=== PATIENT | female | born 1980 | race Caucasian/White ===

== ENCOUNTER 2016-11-23 13:44 | Inpatient (IN) | payer OTHER, MEDICAID ==
[~2016-11-23] VITALS: Ht 157.5 cm; Wt 55.0 kg
[2016-11-23 13:59] VITALS: BP 106/73; PULSE 84; RESP 16; O2SAT 100
--- NOTE | 2016-11-23 16:51 | ED.REPORT ---
HPI-Psychiatric Illness Date of Service Nov 23, 2016 ED Provider: Michelle Rowland History of Present Illness: feeling suicidal for 5 months. primary care duyen kirkpatrick is primary care in [place]. Nursing Notes Stated Complaint: DEPRESSION/SUICIDAL Chief Complaint: Psychiatric Complaint Nursing Notes Reviewed: Yes Allergies: Coded Allergies: No Known Allergies (Unverified , 11/23/16) General Time Seen by MD: 16:50 Chief Complaint Depressed, Suicidal ideation Hx Obtained From: Patient Onset Occurred: More than a week ago... (5 months) Symptom Duration: Since onset Risk-Psychiatric Illness Risk Notes: 2008 stopped drinking for 4 years, no hx of seizures. and stopped last year for 6 months Suicide Risk Stratification Suicide Risk Factors - Adult: : Alcohol use (daily 1/2 a fith to a fifth a day last drink was 11/18/16): Substance abuseNo: Access to firearms, Close associate suicide, Family Hx of Suicide RF Statements: Risk factors reviewed Past Medical History Past Medical History alcoholism Denies: Asthma, Diabetes mellitus Past Surgical History cyst 2006 Reports: Inguinal hernia repair (2014) Smoking History Former Smoker (quit a few years ago) Social History drinks vodka Alcohol Use: >5 per day Drug Use: Denies drug use Occupation lives with brother work in [employer] at [employer] Ambulatory Status Independent Review of Systems Basic Review of Systems Eyes: Vision NL, No discharge Allergy / Immune: No allergy Physical Exam Initial Vital Signs Vital Signs (First) Date Time Temp Pulse Resp B/P Pulse Ox O2 Delivery O2 Flow Rate FiO2 11/23/16 13:59 36.4 84 16 106/73 100 Room Air Initial VS: Reviewed, Vital signs normal Head / Eyes: Atraumatic, Normocephalic, PERRL ENT: Mucous membranes moist, Conjunctiva normal, No scleral icterus Neck: Supple, Non-tender, Full range of motion Respiratory: Breath sounds normal, Clear to auscultation, No respiratory distress Cardiovascular: Regular rate & rhythm, Heart sounds normal, Intact distal pulses Abdomen / GI: Soft, Non-tender, No guarding, No rebound, No distention Back: No CVA tenderness Lymphatic: No lymphadenopathy Extremities: Vascular intact, Neuro intact, No swelling, No tenderness Skin: Warm, Dry, No cyanosis General/Constitutional: Awake, Alert, No acute distress, Well appearing, Well developed, Well hydrated Neurologic: Oriented X3, Speech NL, No motor deficits, No sensory deficits Abnormal Mood/Affect: Positive: Flat affect Head / Eyes: Atraumatic, Normocephalic, PERRL Respiratory / Chest: Atraumatic, Breath sounds NL, Breath sounds = bilat, No respiratory distress Cardiovascular: Heart rate NL, Regular rhythm, Heart sounds NL Interpretation & Diagnostics Lab Results Interpretation Result Diagram: 11/23/16 1642 11/23/16 1642 Test 11/23/16 15:58 11/23/16 16:42 Hold Urine Received (Received) White Blood Count 5.7th/mm3 (3.8-10.1) Red Blood Count 4.56mil/mm3 (3.90-5.20) Hemoglobin 13.3g/dL (12.0-15.6) Hematocrit 40.6% (35.0-46.0) Mean Corpuscular Volume 89.0fL (81-100) Mean Corpuscular Hemoglobin 29.2pg (27.0-35.0) Mean Corpuscular Hemoglobin Concent 32.8% (32.0-37.0) Red Cell Distribution Width 14.6% (12.3-15.4) Platelet Count 281bil/L (150-400) Neutrophils (%) (Auto) 66.4% (40-74) Lymphocytes (%) (Auto) 25.4% (14-46) Monocytes (%) (Auto) 5.9% (4-12) Eosinophils (%) (Auto) 1.6% (0-5) Basophils (%) (Auto) 0.7% (0-3) Sodium Level 138mEq/L (134-144) Potassium Level 3.9mEq/L (3.5-5.2) Chloride Level 99mEq/L (97-108) Carbon Dioxide Level 23mmol/L (18-29) Blood Urea Nitrogen 10mg/dL (6-20) Creatinine 0.57mg/dL (0.57-1.00) Estimat Glomerular Filtration Rate 173mL/min (>59) Glucose Level 94mg/dL (60-99) Calcium Level 9.0mg/dL (8.5-10.1) Total Bilirubin 0.5mg/dL (0.0-1.2) Aspartate Amino Transf (AST/SGOT) 53U/L (0-50) Alanine Aminotransferase (ALT/SGPT) 41U/L (0-32) Alkaline Phosphatase 45U/L (25-150) Total Protein 7.7g/dL (6.4-8.4) Albumin 4.6g/dL (3.4-5.0) Thyroid Stimulating Hormone (TSH) 1.620uIU/mL (0.450-4.500) Hold Escamilla Top Tube Received (Received) Re-Eval/Medical Decision Med Decision/Clinical Course 35 year old present for mental health evualation. Patient reports taking keflex for a bladder infection. EVualated by AUTOMOTIVE UPHOLSTERER, recommends addmision, she voluntary accepts. Discharge & Departure Impression: Primary Impression: Depression Major depression episode severity: moderate Disposition: ADMITTED TO HOSPITAL Referrals: Duyen Rodriguez DO (PCP) EDSupervising Provider for APC: Mason Wayne MD copies to: Duyen Rodriguez Sue ARNP Nov 23, 2016 16:51
[2016-11-23 16:55] LABS: BASOPHILS % (AUTO) 0.7 % (0-3); EOSINOPHILS % (AUTO) 1.6 % (0-5); MONOCYTES % (AUTO) 5.9 % (4-12); Mean Corpuscular Hemoglobin 29.2 pg (27.0-35.0); NEUTROPHILS % (AUTO) 66.4 % (40-74); Platelet Count 281 bil/L (150-400)
--- NOTE | 2016-11-23 20:40 | NUR ---
Nurses Admission Note 35 year old voluntary female certified through [facility] X 5 days.a Patient admitted with increasing depression,anxiety and suicidal ideations. Patient just completed an alcohol detox X 72 hours at [facility] after which she was transferred to [facility] on 11/20 through today when she arrived in the ER. Patient had been sober X 6 months prior to her relapse. Patient presented alert,oriented and polite. She described feeling depressed for most of her adult life with periods of worsening depression and anxiety. Patient stated she has had multiple trials of antidepressants without relief. She reported that her father suffered from Bipolar Disorder. Patient denied any periods of high energy,lack of sleep. Patients' anxiety has been troublesome in maintaining a job as she reported being easily overwhelmed and stressed. Patient denied previous psychiatric hospitalizations,therapy or counseling. She admitted to one episode of self harm by attempting to with excessive alcohol.Will maintain q 15min.checks for safety and support. Patient denied medical problems or allergy. Addendum: 11/23/16 at 2208 by FARIDEH AYALA RN Nurses Addendum Patient has been prescribed an antibiotic for a UTI.Cephalexin 500mg Q 6 hours began on 11/19/16.Patient has 6 capsules left in her supply. Medications sent to pharmacy.
[2016-11-23] MEDS ORDERED: Benzocaine-Menthol Lozenge 2/Pkg PO PRN (21:15)
[2016-11-23] MEDS ORDERED: Magnesium Hydroxide 10 mL Oral Concentration PO PRN (21:15)
[2016-11-23] MEDS ORDERED: Alum-Mag Hydrox-Simeth 30 mL Suspension PO PRN (21:15)
[2016-11-23] MEDS ORDERED: CEPH500T PO (22:36)
[2016-11-23] MEDS ORDERED: FLUO40CA12 PO (22:36)
--- NOTE | 2016-11-24 05:04 | NUR ---
nursing, nights, 11-7 s/o- has appeared to sleep after 2244 during q 15 minute assessments. a- no apparent distress. p- monitor behavior/emotional state, quality, times and amount of sleep, use and effect of medication. aggie
--- NOTE | 2016-11-24 05:27 | NUR ---
Pt arrived to unit at 2039. Signed all paperwork and settled into room. Asleep at 2245. Pt observed every 15 minutes as ordered.
[2016-11-24 08:30] VITALS: BP 105/65; PULSE 89; RESP 16
--- NOTE | 2016-11-24 16:22 | HP ---
[address] [address] HISTORY AND PHYSICAL PATIENT: TESS OWUSU : 1980 MR#: [id number] ADMIT: 11/23/2016 JOB ID: [id number] IDENTIFICATION OF PATIENT: The patient is a 35-year-old female admitted with significant evidence of increasing suicidal ideation with a plan of overdose and recent alcohol overdose within the past week. The patient reportedly was initially seen at [facility], later transferred to [facility] for detox and sent from that site for further evaluation through the emergency department. CHIEF COMPLAINT: "I have been down for so long, I know I need to do something different." This per patient report. HISTORY OF PRESENT ILLNESS: As stated above, the patient is a 35-year-old female who was admitted on a voluntary basis after significant interventions of detox through [facility]. The patient reportedly identified that last Monday she had consumed a third of a half of vodka with the intent that she would cause alcohol poisoning. She was later brought to the emergency department acutely intoxicated and requested further services. She reports that within the past two weeks she elected to move in with her brother who lives in [place]. She reportedly has recently undergone a significant divorce which was completed in October of 2016. The patient states that she did not feel this was a necessary trigger and stated that her ex- and she had irreconcilable differences with open identification that he essentially had no tolerance or empathy for her emotional status. She indicates that she tends to be a very emotional person with many highs and lows. She reports that over the past month she has had a titration of previous doses of Prozac from 20 mg to 40 mg by her family practitioner. She indicates that she is not currently connected with services of counseling. She reports that she has been on and off of Prozac since she was a teenager. She reports that she was born and raised in [place] and moved to [place] the end of 2011. She identifies that she graduated from high school in [place], [place] and attended one year of college in the [employer]. 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 She reports that she has been drinking consistently one half of one fifth over the past several months. In reviewing her previous history of alcohol, she identifies that she underwent chemical dependency treatment in 2008 at [facility] in [place], [place] for residential treatment for approximately one month and later transitioned to three months intensive outpatient programming. She indicated that she had been clean and sober for four years before she met her ex- who she began drinking with consistently. She identified that they were making wine and beer together. She reports that she underwent treatment last December 2015 at [facility] for approximately one month and indicated that she had been clean and sober with transition to the [facility]. In reviewing her current status of substances, she denies any drug usage. She denies any marijuana usage. In reviewing her current status of depression, she does identify significant ups and downs. She indicates that she was curious about possible bipolar disorder due to the fact that her father who is now was diagnosed bipolar in the past. She denies any episodes of pako indicating that she has never had any difficulties with racing thoughts, extended periods of time of sleeplessness or erratic behaviors. She does identify that she is ramírez and tends to overreact to situational crises. She indicates that she has had significant interpersonal relationship difficulties, including two separate marriages which both ended in divorce. She indicates that neither involved domestic assault. PAST MEDICAL HISTORY: Substantial for no allergies to medications. Medications of current include Prozac 40 mg q. a.m. She denies any recent surgeries, fractures or head trauma. Her current medications include: 1. Prozac 40 mg q. a.m. 2. Keflex 500 mg 4x daily for recent diagnosis of UTI. PAST PSYCHIATRIC HISTORY: Substantial for the above information. SOCIAL HISTORY: Currently the patient lives with her brother in [place]. She is unemployed. She has had two separate marriages ending in divorce, most recently in October of 2016. She admits to the above alcohol consumption. She denies any substance abuse. FAMILY HISTORY: Positive for a history of bipolar depression in her biological father who is now . Alcoholism throughout the maternal and paternal family unit. History of depression throughout the maternal and paternal family units. DEVELOPMENT HISTORY: As noted above. MENTAL STATUS EXAMINATION: General appearance: The patient is cooperative, casually dressed. She makes intermittent eye contact. Her speech is of normal tone, frequency and volume. Her mood is depressed with anxious features. Her affect is congruent. Her thought process showed no evidence of racing thoughts, flight of ideas, loose or disconnected thinking. Thought content: She denied any evidence of current suicidal ideation, intent or plan. She admitted to thoughts while attending [facility]. She denied any homicidal ideation. There was no evidence of paranoia. No evidence of hallucinations or delusions. She was alert, oriented to time and place. Attention and concentration intact. 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 Insight and judgment are fair. PHYSICAL EXAM: Vital signs are current. Temperature is 36.4, pulse 89, respirations 16, BP 105/65. ASSESSMENT: AXIS I 1. Major depressive disorder, recurrent type, severe, nonpsychotic. 2. Generalized anxiety disorder. 3. Alcohol use disorder, chronic. AXIS II Cluster B personality features. AXIS III History of urinary tract infection. AXIS IV Stressors are noted for chronic alcohol use, chronic interpersonal relationship difficulties. AXIS V Global assessment of functioning of current 30. PLANS: 1. Recommendations for titration of Prozac to 60 mg q. a.m. 2. Institution of Vistaril 50 mg t.i.d. p.r.n. 3. The patient was open to consideration of referrals for intensive outpatient programming for dual diagnosis. Also will be placed with [facility] as possible resources. 4. Recommendations for probable discharge on Monday/ Monday of next week for continuation of outpatient care.
--- NOTE | 2016-11-24 18:35 | NUR ---
Prescription Clerk Lenses/Counselor: S /O: Patient slept 7.5 hours last night as per staff. Patient denies S/I and H/I. She denies auditory and visual hallucinations. Depression is 6/10 and anxiety is 4/10. When asked her mood, patient stated, "Irritated." A: Patient is cooperative, depressed, anxious, fair insight, fair judgment. P: Follow your care plan, coordinate out-patient providers.
--- NOTE | 2016-11-24 18:42 | NUR ---
Nursing Note Day Shift 7am to 7pm AAOX3 Behavior Pt is quiet and seclusive to self but spending time on the milieu in solitary activities. Pt reported being concerned that she would leave here untreated for what she believes in Bipolar Disorder. Pt reports never having pako or racing thoughts but reports she is emotional and easily triggered. Affect is depressed/anxious, mood congruent. Reports anxiety is a 7 and depression an 8. Thought Process Hopeless, preoccupied with dx, denies A/V H, no delusional content elicited or observed. Organized, logical and linear. Nursing/Medications- Pt given Vistaril 50mg for anxiety, reported it made her feel funny and that she would not take it again. Reports she prefers Ativan.
--- NOTE | 2016-11-24 19:04 | NUR ---
Observations [id number] Pt was asleep upon start of shift. She was friendly with peers and staff. Pt attended groups, sharing that she has been to recovery twice and enjoyed art groups. Pt met with doctor and upon return stated "well, that's not how I wanted that to go." Pt did not elaborate on her meeting. Pt attended all meals, eating an average of 60%. Pt visited with her parents in the evening and appeared to enjoy her visit. She was observed every 15 minutes of shift as directed.
--- NOTE | 2016-11-25 04:45 | NUR ---
Nursing Noc Pt presents A+O without obvious distress. Pt carrying conversation with tag writer, reporting different places she has lived and how [place] was and is still her favorite. Pt taking medications as prescribed, but does not like Vistaril. Cooperative with treatment.
--- NOTE | 2016-11-25 05:13 | NUR ---
OBSERVATIONS 1900 TO 0700 Pt was pleasant and cooperative with staff. Pt attended evening wrap-up group and reported having met her goals for the day of being present and staying positive. Pt rated her day 03/13 and mood 02/11. Pt appeared to have a positive visit with family members. Pt was quiet and mostly kept to herself, however, was social with peers when approached. Pt was recorded asleep at 2230 and slept through the night. Maintained Q15 checks for safety as directed.
[2016-11-25 08:32] VITALS: BP 99/59; PULSE 87; RESP 16
--- NOTE | 2016-11-25 12:09 | NUR ---
Nursing Day Shift S: "I feel like myself in here, without feeling pressured" O: Pt cooperative, pleasant and participating in group. Pt has been keeping busy with coloring. A: Pt affect flat/depressed. P: Monitor for safety and response to treatment. Follow plan of care.
--- NOTE | 2016-11-25 14:31 | PROG NOTE ---
[address] [address] PROGRESS NOTE PATIENT: TESS OWUSU : 1980 MR#: [id number] ADMIT: 11/23/2016 JOB ID: [id number] DATE: 11/25/2016 CHIEF COMPLAINT: "I haven't really learned anything new, I went to a class group." HISTORY OF THE PRESENT ILLNESS: As stated above, the patient identified that over the past 24 hours that she has gone to a couple groups. She indicates that she really has not learned anything specifically new. She indicates that she had shared with nursing staff per their report that she feels Vistaril is not effective for her maintenance of anxiety. She reportedly states that she has had no side effects from the dose increase of Prozac. She appears to be somewhat blunted on response and has been isolating to her room. She indicated that she did have telephone calls which were supportive to some degree from family members but she has not had any contact with her brother who she lives with currently. OBJECTIVE: On mental status examination, the patient was seen in her room. She tends to isolate from the general group activities. She makes intermittent eye contact. She is questionable in her investment at this time. Her speech is of normal tone, frequency and volume. Her mood is mildly dysphoric. Her affect is blunted. Her thought process showed no evidence of random flight of ideas, loose association, disconnection of thought. Thought content: There was no evidence of current suicidal ideation, intent or plan. She denies any evidence of paranoia, hallucinations, delusions. She was alert, oriented to time and place. Her attention and concentration intact. 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 Insight and judgment are fair. PHYSICAL EXAM: Vital signs of current. Temperature is 36.6, pulse 89, respirations 16, BP 115/65. MEDICATION REVIEW: Includes: 1. Prozac 60 mg daily. 2. Hydroxyzine 50 mg t.i.d. p.r.n. 3. Trazodone 50-100 mg q.h.s. ASSESSMENT: AXIS I 1. Major depressive disorder, recurrent type, nonpsychotic. 2. Generalized anxiety disorder. 3. Alcohol use disorder, chronic. AXIS II Cluster B personality features. AXIS III None. AXIS IV Stressors are noted for chronic alcohol usage, transition of life, recent divorce. AXIS V Global assessment of functioning of current 50. PLAN: 1. Recommendations for continuation of medications as noted. 2. Recommendations for encouragement to participate in activities with focused interventions of alternative coping skills.
--- NOTE | 2016-11-25 18:11 | NUR ---
Shower Room Attendant/Counselor: S: "I called my sister and mom today." O: Patient slept 7.5 hours last night as per staff. Patient denies S/I and H/I. She denies auditory and visual hallucinations. Did not rate depression and anxiety. "I was hard on myself yesterday." A: Patient is cooperative, isolative, dysphoric, blunted affect, fair insight, fair judgment. P: Follow your care plan, coordinate out-patient providers.
--- NOTE | 2016-11-25 18:29 | NUR ---
RUST Day Shift Pt maintained behavioral control throughout the shift. Pt affect appears euthymic, mostly bright throughout the shift. Pt spends most of the shift sitting quietly/reading in the dining room and participating in unit activities. Pt is pleasant with staff and peers when active on the unit. Pt attended community meeting in the AM and all group activities throughout the shift. Pt attended all meals and ate approx 100% of all meals.
--- NOTE | 2016-11-25 22:28 | NUR ---
HALF DOSE OF TRAZODONE Pt. reports the scheduled HS dose of Trazodone 100 mg is "way, way too much" and asked for it to be cut in half. 50 mg administered.
--- NOTE | 2016-11-26 05:10 | NUR ---
Nursing Noc Pt noted to have family to visit today and appeared to have good experience. Family did tell her that her antics are causing them stress. Patient participating in unit activities and independent in ADLs. Continuing to monitor mood, behavior, emotional state and safety with Q15 minute safety checks. CP
[2016-11-26 07:30] VITALS: BP 92/59; PULSE 85; RESP 16
--- NOTE | 2016-11-26 13:44 | PROG NOTE ---
[address] [address] PROGRESS NOTE PATIENT: TESS OWUSU : 1980 MR#: [id number] ADMIT: 11/23/2016 JOB ID: [id number] DATE: 11/26/2016 CHIEF COMPLAINT: "I had a very good visit with my mom and my sister. I think we figured out everything." This per patient report. HISTORY OF PRESENT ILLNESS: As stated above, the patient identified that she has made plans with her mother and sister indicating that she will be living with them temporarily in [place] after she discharges. She indicates that it was a very positive visit last evening and that she was glad that things have settled down. She made good eye contact throughout and is very optimistic and tearful on interview with myself and Evangelina. MENTAL STATUS EXAMINATION: Her general appearance, she was much brighter on contact. She maintained good eye contact. She was appropriate in her mannerisms. Her speech was of normal tone, frequency and volume. Her mood was neutral. Affect was full and bright. Her thought process showed no evidence of racing thoughts, flight of ideas, loose or disconnected thinking. Thought content: She denied any evidence of current suicidal, homicidal ideation. No evidence of active hallucinations, delusions. She was alert, oriented to person, place, time, situation. Her attention and concentration intact. 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 Insight and judgment are gaining. PHYSICAL EXAM: Vital signs of current. Temperature is 36.4, pulse 85, respirations 16, BP 92/59. MEDICATION REVIEW: Includes: 1. Prozac 60 mg q. a.m. 2. Vistaril 50 mg t.i.d. p.r.n. 3. Trazodone 100 mg at h.s. ASSESSMENT: AXIS I 1. Major depressive disorder, recurrent type, nonpsychotic. 2. Generalized anxiety disorder. 3. Alcohol use disorder. AXIS II Cluster B personality features. AXIS III None. AXIS IV Stressors are noted for chronic mental health issues, chronic alcohol use. AXIS V Global assessment of functioning of current 40. PLANS: 1. Recommendations for discharge on Monday with continuation of outpatient followup through [facility] services. 2. Continuation of all medications noted.
--- NOTE | 2016-11-26 14:07 | NUR ---
Brush Loader And Handle Attacher./ c.m. S.:"I'm really good." O.: met with pt. and doctor together to assess pt.'s progress. She felt "really good" today. She had "a good visit with mom and sister last night." She said that "it was helpful to hear their view on what was going on over the last 5-6 years." She will stay with her mother for a few days after discharge form here. After that she will with her sister who lives in [place]. She is not planing to get a job right away. She is going to get mental health services at [facility] in [place]. She denied side effect from medications - "I guess they are working." She slept "good" last night. She denied SI/HI, denied AH/VH or paranoid/delusional thoughts. She rated depression at 2/10 and anxiety at 4/10. She was out of her room most of the time watching TV, talking to peers or participating in unit activities. A.: pt. is cooperative, pleasant, has brighter affect, social with peers. P.: monitor behavior, work on Safety plan, follow care plan.
--- NOTE | 2016-11-26 17:28 | NUR ---
Nursing Notes [id number] S: "My anxiety is doing much better". O: Patient Rates anxiety 4/10, denies AH/VH, depression, SI and depression. A: Calm, cooperative and friendly. Making arrangements for places to live after discharge. Positive statements of future reference. P: Monitor for safety and response to treatment. Follow plan of care.
--- NOTE | 2016-11-27 03:26 | NUR ---
Observations 1900 to 0700 Pt was watching TV when my shifts started and that's what she did all night until she went to her bed. Pt was polite and cooperative. Pt first appeared asleep at 23:00 and was observed every 15 minutes through the night as directed.
--- NOTE | 2016-11-27 05:42 | NUR ---
Nursing Noc Pt reports she is doing fine. Rates anxiety at 4/10. Spent evening in common area watching TV then to sleep at 2300. Continuing to monitor mood behavior and emotional state. CP
[2016-11-27 08:03] VITALS: BP 97/66; PULSE 81; RESP 16
--- NOTE | 2016-11-27 12:34 | NUR ---
Nursing Day Shift- S/O- Pt. had slept well per report. She appeared bright and social at breakfast, lunch and groups. She denied suicidal thoughts. A- Participatory, eating well and sleeping well. P- Cont. BHTP.
--- NOTE | 2016-11-27 13:20 | NUR ---
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 I'm going home tomorrow." O.: met with pt. to discuss her follow up. She slept well last night. She denied SI/HI, denied AH/VH or paranoid/delusional thoughts. She described her mood as "good". She completed Safety plan. She didn't want to go back to her previous PCP Jodi Edge DO. She is planing to call her parents PCP tomorrow morning and to schedule appt. with her. She was in and out of her room during the day. A.: pt. is cooperative, pleasant, social with peers, has brighter affect. 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
--- NOTE | 2016-11-27 17:18 | PROG NOTE ---
[address] [address] PROGRESS NOTE PATIENT: TESS OWUSU : 1980 MR#: [id number] ADMIT: 11/23/2016 JOB ID: [id number] DATE: CHIEF COMPLAINT: "My mother will be by to pick me up 1st thing in the morning." This per patient report. HISTORY OF PRESENT ILLNESS: As stated above, the patient identified that she did have contact with her mother last evening and that they are coordinating departure time tomorrow morning. She indicates that she is open to living with her mother and her sister temporarily and indicated that she would like to have services available for outpatient interventions of individual therapy, medication management, and also chemical dependency services. It is my understanding that case management assistant are looking for options in [facility]. MENTAL STATUS EXAM: She was bright, cooperative, interactive. Her speech is of normal tone, frequency, and volume. Her mood was neutral. Affect is congruent. Her thought process showed no evidence of racing thoughts, flight of ideas, loose or disconnected thinking. Her thought content: She denied any evidence of current suicidal, homicidal ideation. No evidence of active hallucinations, delusions. She was alert, oriented to time and place. Attention and concentration intact. 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 Insight and judgment are gaining. PHYSICAL EXAMINATION: Vital signs are current. Temperature is 36.4, pulse 85, respirations 16, BP 92/59. MEDICATION REVIEW: 1. Prozac 60 mg q.a.m. 2. Trazodone 100 mg q.h.s. although she is only taking 50 mg last dose last evening. ASSESSMENT: [place] I1. Major depressive disorder, recurrent type, nonsevere. 2. Alcohol use disorder, chronic, in a controlled environment. 3. Generalized anxiety disorder. [place] IICluster B personality features. [place] IIINone. [place] IVStressors are noted for ongoing disturbance of mental health, transition of life, alcohol use. [place] VGlobal assessment of functioning current 35. PLAN: 1. Recommendations to discharge tomorrow morning with outpatient care to follow. 2. Continuation of all medications noted.
--- NOTE | 2016-11-27 17:27 | NUR ---
[facility] Day Shift Pt affect and behavior unchanged from previous shift. Pt maintained behavioral control throughout the shift. Pt affect appears euthymic, mostly bright throughout the shift. Pt spends most of the shift sitting quietly/reading in the dining room and participating in unit activities. Pt is pleasant with staff and peers when active on the unit. Pt attended all group activities throughout the shift. Pt attended all meals and ate approx 100% of all meals.
--- NOTE | 2016-11-27 20:14 | NUR ---
NURSING NOTE [id number] Mood: "good" Affect: bright, pleasant Behavior: visible in milieu all shift, social w/peers, watching movies, med compliant Thought processes: denies SI/HI/depression/anxiety. Futuristic and looking forward to discharge tomorrow. She expressed gratefulness for her care here. Denies any issues.
--- NOTE | 2016-11-28 04:30 | NUR ---
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 Slept soundly throughout the night. No issues reported or observed. Monitored q 15 minutes for safety, location and accountability.
--- NOTE | 2016-11-28 08:57 | PCM.DIMED ---
Discharge Instructions Date of Service Nov 28, 2016 Dates of Hospitalization Nov 23, 2016 at 19:54 Discharge Diagnosis Discharge Diagnosis Major Depression Recurrent sever nonpsychotic Generalized Anxiety DO Alcohol Use Disorder chronic Diet No restrictions Activity No restrictions Wesley Hernandez DO Nov 28, 2016 08:57
[2016-11-28] MEDS ORDERED: FLUO60TA PO (08:58)
[2016-11-28 10:34] VITALS: BP 103/61; PULSE 87; RESP 16
--- NOTE | 2016-11-28 13:05 | NUR ---
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 to confirm her discharge plan. She completed Safety plan. She slept well last night. She denied SI/HI, denied AH/VH or paranoid/delusional thoughts, denied depression. She had "some" anxiety about her discharge. We talked about things that she could do at home after discharge. Her mother was coming to pick her up. She has follow up appt. for medications with her PCP, Dr. Duyen Rodriguez, DO on December 15 at 8:00 am at [facility] in [place] ([phone]). She has intake appt. for mental health services on December 22 at 13:00 at [facility] in [place] also ([phone]). Pt. was outside her room most of the time. A.: pt. is cooperative, pleasant, positive about discharge home but has discharge anxiety. P.: monitor behavior, follow care plan.
--- NOTE | 2016-11-28 13:54 | NUR ---
Nursing Note Discharge S/O: Pt discharge Addendum: 11/28/16 at 1359 by CHIARA JACK RN S/O: Pt discharged at 1300. Pt rated depression at a "6" on a scale of 1-10/10 the worst. "It's much better," pt stated. She rated her anxiety at a "3." She denies suicidal ideation. Scripts faxed to [facility] in [place]. Pt signed all discharge paperwork. She expressed understanding of paperwork & scheduled appointments. Pt pleasant & cooperative with d/c process.
--- NOTE | 2016-11-28 16:51 | DIS ---
[address] [address] DISCHARGE SUMMARY PATIENT: TESS OWUSU : 1980 MR#: [id number] ADMIT: 11/23/2016 JOB ID: [id number] DIS: 11/28/2016 ADMITTING DIAGNOSES: Include [place] I. 1. Major depressive disorder, recurrent type, severe, nonpsychotic. 2. Generalized anxiety disorder. 3. Alcohol use disorder, chronic. [place] II. Cluster B personality features. [place] III. History of urinary tract infection. [place] IV. Stressors are chronic alcohol use, interpersonal relationship difficulties. [place] V. Global Assessment of Functioning current 30. DISCHARGE DIAGNOSES: Include [place] I. 1. Major depressive disorder, recurrent type, severe, nonpsychotic. 2. Generalized anxiety disorder. 3. Alcohol use disorder, chronic. [place] II. Cluster B personality features. [place] III. History of urinary tract infection. [place] IV. Stressors are chronic alcohol use, interpersonal relationship difficulties. [place] V. Global Assessment of Functioning current 50. REASON FOR ADMISSION: Patient was a 35-year-old female admitted with significant evidence of increasing suicidal ideation with a plan of overdose and significant alcohol usage. During hospital course, the patient identified a previous treatment with doses of Prozac with limited benefit at 40 mg. She openly identified a desire to go through a dual diagnosis program and arrangement with [facility] was coordinated through case management. During hospital course, patient participated in both individual and group therapy complements with gains of insight into alternative coping. Her Prozac was titrated to 60 mg daily with beneficial improvement of overall mood status. She denied any evidence of perseveration of suicidal ideation, intent or plan and was agreeable with aftercare planning. CONDITION AT TIME OF DISCHARGE: Her mental status exam, she was bright, cooperative, interactive. She maintained good eye contact throughout. Her speech was of normal tone, frequency, and volume. Her mood was neutral. Affect was congruent. Her thought process showed no evidence of racing thoughts, flight of ideas, loose or disconnected thinking. Thought content: There was no evidence of current suicidal ideation, intent, or plan. She openly identified a congruent safety plan. She denied any difficulties with homicidal ideation. No evidence of paranoia, hallucinations, delusions. She was alert, oriented to time and place. Her attention and concentration intact. Memory intact in the short term, usp, recent. Insight and judgment were fair. DISCHARGE PLANS: Include: 1. Continuation of Prozac 60 mg q.a.m., one month supply, no refills. Reason for usage: Antidepressant. 2. Followup coordination with [facility], intake coordinated for December 22 at 13:00. 3. Follow up with general medical care for recent UTI with Dr. Carisa Rodriguez December 15, 2016, at 8 a.m. 4. Recommendations for continuation of a clean and sober lifestyle, highly encouraged with participation in local AA chapter meetings.
== END 2016-11-28 13:00 | disposition home or self-care (01) | DRG 885 ==
LOC: SED 13:44 → MHC 19:54
PROVIDERS: ADMIT Psychiatry & Neurology Psychiatry; ATTEND Psychiatry & Neurology Psychiatry
DX: F33.2 Major depressive disorder, recurrent severe without psychotic features (principal); F41.1 Generalized anxiety disorder; Z72.89 Other problems related to lifestyle